=== PATIENT | female | born 1975 | race Caucasian/White ===

== ENCOUNTER 2016-12-29 15:57 | Emergency (ER) | payer OTHER ==
[~2016-12-29] VITALS: Ht 162.6 cm; Wt 63.0 kg
[~2016-12-29 15:57] MED LIST: AUGMENTIN500 MG OR; CIPRO500 MG OR; CIPROFLOXACN500 MG PO; COMBIVIR OR; LORTAB 5 OR; ONDANSETRON4 MG PO; TYLENOL COLD OR; ZOFRAN ODT4 MG OR
[2016-12-29] MEDS ORDERED: IBUPROFEN600 MG PO (16:12)
[2016-12-29] MEDS ORDERED: ULTRAM50 M1 PO (16:39)
[2016-12-29 16:41] VITALS: BP 119/72
== END 2016-12-29 16:47 | disposition home or self-care (01) | DRG 605 ==
LOC: ED 15:57
DX: S70.02XA Contusion of left hip, initial encounter (principal); W22.8XXA Striking against or struck by other objects, initial encounter; Y93.89 Activity, other specified; Y92.29 Other specified public building as the place of occurrence of the external cause